=== PATIENT | female | born 1975 | race Caucasian/White ===

== ENCOUNTER 2017-02-09 09:04 | Emergency (ER) | payer MEDICAID ==
[2017-02-09 10:31] VITALS: BP 113/82
== END 2017-02-09 10:31 | disposition home or self-care (01) ==
LOC: ED 09:04
DX: S39.012A Strain of muscle, fascia and tendon of lower back, initial encounter (principal); E78.00 Pure hypercholesterolemia, unspecified; X50.9XXA Other and unspecified overexertion or strenuous movements or postures, initial encounter; Y93.E1 Activity, personal bathing and showering; Y99.8 Other external cause status; Y92.89 Other specified places as the place of occurrence of the external cause

== ENCOUNTER 2017-04-09 12:01 | Emergency (ER) | payer MEDICAID ==
[2017-04-09 14:38] VITALS: BP 133/89
== END 2017-04-09 14:38 | disposition home or self-care (01) ==
LOC: ED 12:01
DX: J98.01 Acute bronchospasm (principal); E78.00 Pure hypercholesterolemia, unspecified